=== PATIENT | female | born 1955 | race Caucasian/White ===

== ENCOUNTER 2019-07-18 12:14 | Outpatient (CLI) | payer BC ==
--- NOTE | 2019-07-18 14:25 | XRAY Report ---
Reason: BACK PAIN,LUMBAR THORACIC REGION,OSTEOPORTOSIS,SCO Procedure Date: 07/18/2019 Accession Number: [id number] / [id number] Procedure: XR - Lumbar Spine 2 View CPT Code: FULL RESULT: EXAM: LUMBOSACRAL SPINE RADIOGRAPHY EXAM DATE: 07/18/2019 01:01 PM. CLINICAL HISTORY: Back pain, lumbar thoracic region, osteoporosis, SCO. COMPARISONS: XR LUMBOSACRAL SPINE 4 VIEWS 07/28/2010 4:34 PM. TECHNIQUE: 2 views. FINDINGS: Alignment: There is 20 degrees of levoscoliosis at the apex at L2 with very slight rotatory component similar to comparison exam of 2009. No listhesis. Stable appearance of dual posterior fixation rods with a sublaminar hook at L1 of the left-sided giovanny and sublaminar hooks at T11 and T12 of the right-sided giovanny. Bones: There are 5 [id number] lumbar vertebrae. No acute fracture or bone lesion identified. Disks: Mild disk space narrowing at L5-S1 with vacuum disk phenomenon. Other disk levels are within expected limits. Facets: Stable facet arthrosis at L4-L5 and L5-S1. Sacroiliac Joints: Unremarkable. Soft Tissues: Normal. The visualized bowel gas pattern is normal. IMPRESSION: Stable exam findings with mild levoscoliosis and mild degenerative changes. No acute fracture appreciated. RADIA
== END 2019-07-18 12:15 | disposition home or self-care (01) ==
LOC: DI 12:14
PROVIDERS: ATTEND Nurse Practitioner
DX: M51.37 Other intervertebral disc degeneration, lumbosacral region (principal); M47.816 Spondylosis without myelopathy or radiculopathy, lumbar region; M47.817 Spondylosis without myelopathy or radiculopathy, lumbosacral region
CPT/HCPCS: 72100

== ENCOUNTER 2020-04-23 14:47 | Outpatient (CLI) | payer MEDICARE ==
--- NOTE | 2020-04-24 04:22 | XRAY Report ---
Reason: PAIN IN LT KNEE Procedure Date: 04/23/2020 Accession Number: [id number] / [id number] Procedure: XR - Knee 3 View LT CPT Code: Final Report FULL RESULT: EXAM: LEFT KNEE RADIOGRAPHY EXAM DATE: 04/23/2020 03:05 PM. CLINICAL HISTORY: Pain in left knee x 6 months, worse x 3 weeks. No trauma. COMPARISON: None. TECHNIQUE: 3 views. FINDINGS: Bones: Normal. No fractures or bone lesions. Minimal spurring at superior pole of patella. No significant degenerative changes. Joints: Possible small suprapatellar effusion. No subluxations. Soft Tissues: Normal. No soft tissue swelling. IMPRESSION: 1. No acute osseous abnormality. 2. No significant degenerative changes evident radiographically. 3. Possible suprapatellar joint effusion. RADIA
== END 2020-04-23 14:48 | disposition home or self-care (01) ==
LOC: DI 14:47
PROVIDERS: ATTEND Family Medicine
DX: M25.562 Pain in left knee (principal)

== ENCOUNTER 2020-05-18 16:35 | Outpatient (CLI) | payer MEDICARE ==
--- NOTE | 2020-05-18 17:37 | XRAY Report ---
PROCEDURE: TMJ's-Temporal Mandibular Jts INDICATIONS: TMJ TECHNIQUE: AP lateral and oblique views of the temporomandibular joints were obtained. COMPARISON: None. FINDINGS: No visualized fractures. No suspicious osseous lesions. The mandibular head is not well-characterized on all views secondary to overlapping osseous structures. No gross areas of necrosis or bony deformi ty are identified. No definitive displacement between open and closed mouth views although suboptimal ly evaluated. IMPRESSION: Suboptimal evaluation as above. No gross displacement or mandibular deformity. However, if clinical c oncern persists, MRI is recommended for further evaluation, as current exam is limited. Reviewed by: María Pastrana MD on 05/18/2020 5:35 PM PDT Approved by: María Pastrana MD on 05/18/2020 5:35 PM PDT Station ID: [id number]
== END 2020-05-18 16:36 | disposition home or self-care (01) ==
LOC: DI.S 16:35
PROVIDERS: ATTEND Nurse Practitioner Family
DX: M26.609 Unspecified temporomandibular joint disorder, unspecified side (principal)
CPT/HCPCS: 70330

== ENCOUNTER 2021-06-09 17:15 | Outpatient (CLI) | payer MEDICARE ==
[2021-06-09 17:30] LABS: BILIRUBIN,URINE NEGATIVE (NEGATIVE); GLUCOSE, URINE (UA) NEGATIVE (NEGATIVE); KETONES,URINE (UA) NEGATIVE (NEGATIVE); LEUKOCYTE ESTERASE, URINE NEGATIVE (NEGATIVE); NITRITE,URINE NEGATIVE (NEGATIVE); OCCULT BLOOD,URINE TRACE-INTA (NEGATIVE); PROTEIN,URINE NEGATIVE (NEGATIVE); UROBILINOGEN,URINE 0.2 (NORMAL) E.U./dL (NORMAL)
[2021-06-09 17:33] LABS: BACTERIA,URINE None Seen /HPF (None Seen); CLARITY,URINE CLEAR (CLEAR); RBC,URINE 0-5 /HPF (0-5); SQUAMOUS EPITHELIAL CELL,UR RARE Squamous (<= Few); WBC,URINE 0-3 /HPF (0-5)
== END 2021-06-09 17:16 | disposition home or self-care (01) ==
LOC: LAB 17:15
PROVIDERS: ATTEND Nurse Practitioner Family
DX: R30.9 Painful micturition, unspecified (principal)
CPT/HCPCS: 81001; 87086

== ENCOUNTER 2022-03-11 16:17 | Outpatient (CLI) | payer MEDICARE | END 2022-03-11 16:18 | disposition critical access hospital (66) | LOC: EMS 16:17 | DX: R07.89 Other chest pain (principal) | CPT/HCPCS: A0425; A0427 ==

== ENCOUNTER 2022-03-11 16:20 | Emergency (ER) | payer MEDICARE ==
[2022-03-11] MEDS ORDERED: LORazepam 2 MG/ML VIAL IVP STA (16:29)
--- NOTE | 2022-03-11 16:31 | ED Physician Documentation ---
PD HPI CHEST PAIN - Stated complaint Stated Complaint: CHEST PX/ANXIETY - History obtained from History obtained from: Patient, Friend, EMS - Additional information Additional information: 67-year-old woman who is medically healthy but has a history of bone and joint problems presents with very odd migrating chest and back pain starting after using THC vape pen which she is never done before. She is quite anxious and describing migratory pains in the upper abdomen, neck, chest, shoulders. She cannot describe it. She denies shortness of breath with it. She does feel mildly nauseous. No pedal edema or calf pain. No recent travel. Review of Systems Constitutional: reports: Chills. denies: Sweats Nose: denies: Rhinorrhea / runny nose Cardiac: reports: Chest pain / pressure. denies: Palpitations, Pedal edema, Calf pain Respiratory: denies: Dyspnea, Cough, Hemoptysis, Wheezing PD PAST MEDICAL HISTORY - Allergies Allergies/Adverse Reactions: Allergies Allergy/AdvReac Type Severity Reaction Status Date / Time losartan Allergy Nausea Verified 03/11/22 16:37 Sulfa (Sulfonamide Allergy Unknown Verified 03/11/22 16:37 Antibiotics) PD ED PE NORMAL - Vitals Vital signs reviewed: Yes - General General: Alert and oriented X 3, Other (She appears uncomfortable and is crying, keeping her eyes closed for the most part) - HEENT HEENT: PERRL, EOMI - Neck Neck: Supple, no meningeal sign, No bony TTP - Cardiac Cardiac: Other (Tachycardic but regular without murmur) - Respiratory Respiratory: No respiratory distress, Clear bilaterally - Abdomen Abdomen: Normal bowel sounds, Soft, Non tender - Back Back: No CVA TTP, No spinal TTP - Derm Derm: Normal color, Warm and dry - Extremities Extremities: No edema, No calf tenderness / cord - Neuro Neuro: Alert and oriented X 3, Normal speech - Psych Psych: Other (Anxious and agitated) Results - Vitals Vitals: Vital Signs - 24 hr 03/11/22 03/11/22 03/11/22 16:28 16:45 17:15 Temperature 36.4 C L 36.6 C Heart Rate 112 H 92 97 Respiratory 19 19 22 Rate Blood Pressure 157/119 H 172/96 H 151/83 H O2 Saturation 99 100 96 03/11/22 17:30 Temperature 36.6 C Heart Rate 95 Respiratory 16 Rate Blood Pressure 129/78 O2 Saturation 98 Oxygen O2 Source Room air - EKG (time done) 1632 Rate: Rate (enter#) (103) Rhythm: Sinus tachycardia (w pvcs), LAE Intervals: Prolonged UT QRS: LVH Ischemia: Q waves (III/F). No: ST elevation c/w ischemia, ST depression 1735 Rate: Rate (enter#) (95) Rhythm: NSR [place]: Normal Intervals: Normal UT QRS: LVH Ischemia: Q waves (inferior) Computer interpretation: Agree with computer - Labs Labs: Laboratory Tests 03/11/22 03/11/22 03/11/22 16:37 16:37 16:37 WBC 6.6 RBC 4.68 Hgb 15.0 Hct 45.3 MCV 96.8 MCH 32.1 H MCHC 33.1 RDW 12.6 Plt Count 203 MPV 8.7 Neut # (Auto) 3.6 Lymph # (Auto) 2.1 [place] # (Auto) 0.4 Eos # (Auto) 0.4 Baso # (Auto) 0.1 Absolute Nucleated RBC 0.00 Nucleated RBC % 0.0 Sodium 138 Potassium 3.4 L Chloride 102 Carbon Dioxide 25 Anion Gap 11.0 BUN 19 Creatinine 0.7 Estimated GFR (MDRD) 83 L Glucose 129 H Calcium 9.9 Total Bilirubin 0.5 AST 16 ALT 10 Alkaline Phosphatase 54 Troponin I High Sens 3.3 Total Protein 7.3 Albumin 4.3 Globulin 3.0 Albumin/Globulin Ratio 1.4 PD MEDICAL DECISION MAKING - ED course ED course: 67-year-old woman presents with very odd chest pain and she is agitated after using some THC. After 1 mg of Ativan she is feeling much better and the agitation has resolved. Initially I was considering aortic pathology such as a dissection, but since it was so easy to control her symptoms and they abated this makes the THC much more likely to be causative. We did discuss the incidental findings on her EKG and the necessary follow-up for that. Departure - Departure Disposition: 01 Home, Self Care Clinical Impression: Atypical chest pain Condition: Good Record reviewed to determine appropriate education?: Yes Instructions: ED Chest Pain NonCardiac Comments: On your EKG there was a suggestion of potentially an enlarged heart and may be a prior heart attack. Nothing looking acute though. EKG is not the best modality to work this up and you should talk with your doctor, Sunday or Sunday about scheduling an echocardiogram. Return for new or worsening symptoms.
[2022-03-11] MEDS ORDERED: IOVERSOL 320 100 ML VIAL IVP ONE (16:43)
[2022-03-11 16:47] LABS: BASOPHILS # (AUTO) 0.1 10^3/uL (0.0-0.1); BASOPHILS % (AUTO) 0.8 %; EOSINOPHILS # (AUTO) 0.4 10^3/uL (0.0-0.7); EOSINOPHILS % (AUTO) 6.7 %; HCT - HEMATOCRIT 45.3 % (37.0-47.0); LYMPHOCYTES # (AUTO) 2.1 10^3/uL (1.5-3.5); LYMPHOCYTES % (AUTO) 32.2 %; MEAN CORPUSCULAR HEMOGLOBIN 32.1 pg (27.0-31.0); MEAN CORPUSCULAR HGB CONC 33.1 g/dL (32.0-36.0); MEAN CORPUSCULAR VOLUME 96.8 fL (81.0-99.0); MEAN PLATELET VOLUME 8.7 fL (7.9-10.8); MONOCYTES # (AUTO) 0.4 10^3/uL (0.0-1.0); MONOCYTES % (AUTO) 5.5 %; NEUTROPHILS # (AUTO) 3.6 10^3/uL (1.5-6.6); NEUTROPHILS % (AUTO) 54.5 %; PLT - PLATELET COUNT 203 10^3/uL (130-450); RED BLOOD COUNT 4.68 10^6/uL (4.20-5.40); RED CELL DISTRIBUTION WIDTH 12.6 % (12.0-15.0); WHITE BLOOD COUNT 6.6 x10^3/uL (4.8-10.8)
[2022-03-11 17:06] LABS: ALBUMIN 4.3 g/dL (3.2-5.5); ALBUMIN/GLOBULIN RATIO 1.4 (1.0-2.2); BILIRUBIN,TOTAL 0.5 mg/dL (0.2-1.0); CALCIUM 9.9 mg/dL (8.5-10.3); CREATININE 0.7 mg/dL (0.4-1.0); POTASSIUM 3.4 mmol/L (3.5-5.0); TOTAL PROTEIN 7.3 g/dL (6.7-8.2)
[2022-03-11 17:32] VITALS: BP 129/78
== END 2022-03-11 17:57 | disposition home or self-care (01) ==
LOC: EDUNIT# → ED 16:20
DX: R07.89 Other chest pain (principal)
CPT/HCPCS: 36415; 80053; 84484; 85025; 93005; 96374; 99282; 99284; J2060

== ENCOUNTER 2022-03-21 08:00 | Outpatient (CLI) | payer MEDICARE ==
--- NOTE | 2022-03-21 11:35 | XRAY Report ---
PROCEDURE: Toe(s) RT INDICATIONS: PAIN IN RIGHT TOES TECHNIQUE: 3 views of the right toe(s) acquired. COMPARISON: None FINDINGS: Bones: No fractures or dislocations. No suspicious bony lesions. Moderate first metatarsal phalang eal joint space narrowing with marginal osteophyte present. Soft tissues: No suspicious soft tissue densities. IMPRESSION: First MTP osteoarthritis. No fracture. Reviewed by: Orlando Franks MD on 03/21/2022 10:33 AM JEFF Approved by: Orlando Franks MD on 03/21/2022 10:33 AM AKTARUN Station ID: [id number]
== END 2022-03-21 23:59 | disposition home or self-care (01) ==
LOC: DI.S 08:00
PROVIDERS: ATTEND Physician Assistant Medical
DX: M19.071 Primary osteoarthritis, right ankle and foot (principal)

== ENCOUNTER 2022-04-30 15:11 | Outpatient (CLI) | payer MEDICARE | END 2022-04-30 15:12 | disposition home or self-care (01) | LOC: LAB 15:11 | PROVIDERS: ATTEND Internal Medicine | DX: R39.9 Unspecified symptoms and signs involving the genitourinary system (principal) | CPT/HCPCS: 87086; 87181 ==

== ENCOUNTER 2023-06-25 11:24 | Outpatient (CLI) | payer MEDICARE | END 2023-06-25 11:25 | disposition home or self-care (01) | LOC: LAB 11:24 | PROVIDERS: ATTEND Registered Nurse | DX: R30.0 Dysuria (principal) | CPT/HCPCS: 87086 ==

== ENCOUNTER 2023-07-05 08:34 | Outpatient (CLI) | payer MEDICARE ==
[2023-07-05 08:49] LABS: BASOPHILS # (AUTO) 0.1 10^3/uL (0.0-0.1); EOSINOPHILS # (AUTO) 0.4 10^3/uL (0.0-0.7); EOSINOPHILS % (AUTO) 7.6 %; HCT - HEMATOCRIT 45.8 % (37.0-47.0); HGB - HEMOGLOBIN 14.8 g/dL (12.0-16.0); LYMPHOCYTES # (AUTO) 1.5 10^3/uL (1.5-3.5); LYMPHOCYTES % (AUTO) 31.8 %; MEAN CORPUSCULAR HGB CONC 32.3 g/dL (32.0-36.0); MEAN CORPUSCULAR VOLUME 98.9 fL (81.0-99.0); MEAN PLATELET VOLUME 8.3 fL (7.9-10.8); MONOCYTES # (AUTO) 0.4 10^3/uL (0.0-1.0); MONOCYTES % (AUTO) 7.4 %; NEUTROPHILS # (AUTO) 2.5 10^3/uL (1.5-6.6); PLT - PLATELET COUNT 204 10^3/uL (130-450); RED BLOOD COUNT 4.63 10^6/uL (4.20-5.40); RED CELL DISTRIBUTION WIDTH 12.5 % (12.0-15.0); WHITE BLOOD COUNT 4.9 x10^3/uL (4.8-10.8)
[2023-07-05 09:01] LABS: ALBUMIN 4.3 g/dL (3.2-5.5); ALBUMIN/GLOBULIN RATIO 1.7 (1.0-2.2); ALKALINE PHOSPHATASE 51 IU/L (42-121); ALT ALANINE AMINOTRANSFERASE 16 IU/L (10-60); AST ASPARTATE AMINOTRANSFERASE 18 IU/L (10-42); BILIRUBIN,TOTAL 0.5 mg/dL (0.2-1.0); BUN - BLOOD UREA NITROGEN 14 mg/dL (6-20); CALCIUM 9.8 mg/dL (8.5-10.3); CARBON DIOXIDE - CO2 32 mmol/L (21-32); CHLORIDE 105 mmol/L (101-111); CHOL/HDL RATIO 3.6 (<4.4); CHOLESTEROL 262 mg/dL; CREATININE 0.6 mg/dL (0.6-1.3); CRP HIGH SENSITIVITY 1.71 mg/L; GFR - MDRD 99 (>89); GLUCOSE 97 mg/dL (74-104); HDL CHOLESTEROL 72 mg/dL; LDL CHOLESTEROL,CALCULATED 175 mg/dL; LDL/HDL RATIO 2.4 (<4.4); POTASSIUM 4.2 mmol/L (3.5-4.5); SODIUM 141 mmol/L (135-145); TOTAL PROTEIN 6.8 g/dL (6.4-8.9); TRIGLYCERIDES 77 mg/dL (48-352); VLDL CHOLESTEROL 15 mg/dL
== END 2023-07-05 08:35 | disposition home or self-care (01) ==
LOC: LAB 08:34
PROVIDERS: ATTEND Emergency Medicine
DX: R00.2 Palpitations (principal); H53.452 Other localized visual field defect, left eye; Z79.899 Other long term (current) drug therapy; Z13.220 Encounter for screening for lipoid disorders; M81.0 Age-related osteoporosis without current pathological fracture; Z13.29 Encounter for screening for other suspected endocrine disorder
CPT/HCPCS: 36415; 80053; 80061; 83721; 83735; 83970; 84443; 85025; 86141

== ENCOUNTER 2023-08-31 15:44 | Outpatient (CLI) | payer MEDICARE ==
--- NOTE | 2023-08-31 18:19 | Ultrasound Report ---
PROCEDURE: Carotid Doppler Complete INDICATIONS: VISION LOSS, MIGRAINE KANG TECHNIQUE: Duplex carotid ultrasound was obtained and circulation sales representative images were recorded with veloc ity measurements. Any estimate of stenosis was obtained with reference to standards endorsed by the [employer] COMPARISON: None. FINDINGS: Right side: Brachial blood pressure: 120/77 mm Hg. Common carotid artery peak systolic velocity: 66 cm/sec. Internal carotid artery peak systolic velocity: 82 cm/sec. Internal carotid artery end diastolic velocity: 34 cm/sec. External carotid artery peak systolic velocity: 69 cm/sec. ICA/CCA peak systolic ratio: 1.2 . Elena scale imaging description: Mild extrahepatic plaque Percent internal carotid artery stenosis: Less than 50. Vertebral artery: Flow direction is antegrade. Left side: Brachial blood pressure: 123/68 mm Hg. Common carotid artery peak systolic velocity: 76 cm/sec. Internal carotid artery peak systolic velocity: 69 cm/sec. Internal carotid artery end diastolic velocity: 26 cm/sec. External carotid artery peak systolic velocity: 92 cm/sec. ICA/CCA peak systolic ratio: 0.9 . Elena scale imaging description: Mild left sclerotic plaque Percent internal carotid artery stenosis: Less than 50. Vertebral artery: Flow direction is antegrade. IMPRESSION: 1. Mild atherosclerotic plaque in both proximal internal carotid arteries without hemodynamically sig nificant stenosis. Reviewed by: Orlando Franks MD on 08/31/2023 5:18 PM JEFF Approved by: Orlando Franks MD on 08/31/2023 5:18 PM JEFF Station ID: [id number]
== END 2023-08-31 15:45 | disposition home or self-care (01) ==
LOC: DI 15:44
PROVIDERS: ATTEND Registered Nurse
DX: G43.909 Migraine, unspecified, not intractable, without status migrainosus (principal); H53.139 Sudden visual loss, unspecified eye; I65.23 Occlusion and stenosis of bilateral carotid arteries
CPT/HCPCS: 93880

== ENCOUNTER 2023-10-22 08:55 | Outpatient (CLI) | payer MEDICARE ==
--- NOTE | 2023-10-23 22:00 | SLEEP CARE CONSULTATION ---
Information from patient questionnaire entered by Jad Campbell. I have reviewed and concur with the information entered by Jad Campbell. This document represents the service I personally performed and the decisions made by me, Luis Fernando James MD, [facility]. History of Present Illness Service Date and Time: 10/22/2023 0855 Reason for Visit: New patient Chief Complaint: reports: Insomnia, Unrefreshed sleep, Fatigue, Frequent awakenings at night, Other (WAKING EVERY EVENING HEART POUNDING) Date of Onset: 6YRS Usual bedtime: 10-11PM Time it takes to fall asleep: AT LEAST 1 HR Snores at night: No Observed to quit breathing while asleep: No Sleeps alone due to snoring: No Number of times waking at night: 2-3 Reasons for waking at night: reports: Bathroom, Other (UNKNOWN) Toss, Turn, or Twitch while sleeping: No Usually gets out of bed at: 7-730AM Feels refreshed in the morning: No Sleepy or fatigued during the day: Yes Ever fallen asleep while driving: No Takes day naps: No Prior sleep studies: Yes Additional HPI information: I have the pleasure of seeing Ms. Garg today regarding the possibility of her having obstructive sleep apnea. As you know, she is a 68-year-old lady who has complained of insomnia for the past 6 years. It started when her partner . She says that since then, she is afraid to go to sleep because she would wake up with palpitations. Ten years ago, she had a sleep study at [facility]. She was told that she had mild obstructive sleep apnea-hypopnea and was prescribed a CPAP. She could not tolerate it. That does not occur if there is somebody else sleeping in her house. The patient tells me that she normally goes to bed around 10 - 11 pm, and it takes her approximately 60+ minutes to fall asleep. She has not been told that she snores loudly or irregularly at night. She has never been observed to stop breathing in her sleep. She now sleeps alone. She can recall waking up on average 2 - 3 times during the night. Most of the time she wakes up because of having to use the bathroom. She has awakened occasionally because of her own snoring, choking, and having to gasp for air. There is a lot of tossing and turning in her sleep. No somniloquy (sleep talking) or somnambulism (sleep walking). Generally, she can recall having dreams. In the morning she usually gets up out of the bed around 7 7:30 a.m. not feeling refreshed nor rested. She occasionally has a morning headache. During the day she complains of feeling sleepy and fatigued. Her score on [place] Sleepiness Scale is 3 out of 24. She never has fallen asleep while driving nor has had any accident due to sleepiness. She usually does not take naps during the day. Upon falling asleep during the day she admits to denies having vivid dreams. She has never had sleep paralysis, experienced cataplexy or symptoms of restless leg syndrome. She reports having impaired concentration during the day. - Parasomnia Symptoms Ever been unable to move upon waking from sleep: No Walks in sleep: No Ever acted out dreams in sleep: No Ever felt weak in the knees when startled or emotional: No Bothered by creepy, crawly, restless sensations in legs: No Problems with memory or concentration: Yes Subjective Initial [place] Sleepiness Scale score: 3 (10/22/23) Past Medical History Past Medical History: reports: Hypertension, Arthritis, Anxiety, Depression Social History The patient's occupation is a RE. Patient is Single and lives in . Have you smoked in the past 12 months: No Alcohol use: Yes Alcohol amount and frequency: 1 DRINK ONCE AWEEK Caffeine use: Yes Caffeine amount and frequency: 1 DRINK IN THE AM Family History Family history of sleep disordered breathing: No Allergies and Home Medications Known drug allergies: Yes Drug allergies reviewed: Yes Home medication list reviewed: Yes Allergy and home medication list: Allergies losartan Allergy (Verified 10/17/23 10:14) Nausea Sulfa (Sulfonamide Antibiotics) Allergy (Verified 10/17/23 10:14) Unknown Review of Systems Cardiovascular: reports: high blood pressure, palpitations Respiratory: denies: shortness of breath, wheeze, sputum production, chronic cough, other Gastrointestinal: denies: heartburn, difficulty swallowing, nausea, vomitting, diarrhea, abdominal pain, other Urinary: reports: other (BLADDER AIN) Neurological: reports: headaches, head trauma Psychiatric: denies: Attention Deficit Hyperactivity, anxiety, depression, mood disorder, claustrophobia, other Ear/Nose/Throat: denies: nasal congestion, sinus problems, nose bleeds, dry mouth/throat, hoarseness, injury to nose, tonsillectomy, wisdom teeth removed, other Musculoskeletal: denies: joint pain, neck pain, back pain, joint swelling, muscle pain or cramping, mobility problems, other Immunologic: denies: sneezing, rash, itching, allergies to food or environment, other Physical Exam Vital signs obtained and entered by: JAD Ferro MA Blood Pressure: 114/66 (LEFT ARM) Cuff size: regular Heart Rate: 68 O2 Saturation: 97 Height: 5 ft 4.75 in Weight: 139 lb 9.6 oz Body Mass Index: 23.3 BMI Classification: Normal Neck circumference: 13.5 Mood/affect: Normal HEENT: No craniofacial malformation Nostrils: patent to airflow Turbinates: normal Septum: midline Mouth and throat: narrow oropharynx Soft palate: long Hard palate: normal Uvula: normal Uvula visualization: 50% Mallampati Class II Tongue: normal in size Tonsils: small Chin and jaw: normal size and position Neck: normal w/o lymphadenopathy or thyromegaly Heart: regular rate and rhythm Lungs: clear bilaterally Extremities: no edema or clubbing Neurologic: intact Impression and Plan IMPRESSION: 1. Obstructive Sleep Apnea-Hypopnea Syndrome, as previously diagnosed. She does not appear to be symptomatic at this point. She does not even snore. Therefore, another in-laboratory polysomnography will be performed to see if she still has the sleep-related breathing disorder. 2. Insomnia, most likely due to underlying anxiety / depression that stem from her partner passing 6 years ago. She also spends excessive time in bed at night. Because she gets out of bed at 7:30 am, I advised her to not go to bed until midnight. Plan: 1. Schedule polysomnography and return in 1 to 2 weeks after the study to discuss result and initiate therapy. 2. Maintain a regular wake up time and spend no more than 7.5 hours in bed at night. Avoid naps. 3. Consider further evaluation and treatment of anxiety / depression. Follow up with Sleep Care in: 1-2 months Visit Type: In Office Time Spent with Patient (minutes): 15 Provider Statement: I spent 100% of the Face to Face Visit with the patient with greater than 50% spent counseling the patient and coordination of care.
[2023-10-23 22:05] VITALS: BP 114/66; O2SAT 97
== END 2023-10-22 08:56 | disposition home or self-care (01) ==
LOC: SC 08:55
PROVIDERS: ATTEND Internal Medicine Pulmonary Disease
DX: G47.33 Obstructive sleep apnea (adult) (pediatric) (principal); G47.00 Insomnia, unspecified
CPT/HCPCS: 99202; G0463; 99212

== ENCOUNTER 2024-03-04 14:45 | Outpatient (CLI) | payer MEDICARE ==
--- NOTE | 2024-03-04 15:53 | XRAY Report ---
PROCEDURE: Ankle 3 View BILAT INDICATIONS: BILAT ANKLE PAIN TECHNIQUE: 4 views of the bilateral ankles were acquired. COMPARISON: None. FINDINGS: Bones: No fractures or dislocations. Ankle mortise is normally aligned. No suspicious bony lesions . Soft tissues: No tibiotalar joint effusion. Achilles tendon appears normal. IMPRESSION: No acute bony abnormality. If pain persists with conservative management, consider repeat x-ray in 10 -14 days or cross-sectional imaging. Reviewed by: Selvin Flores MD on 03/04/2024 3:52 PM PDT Approved by: Selvin Flores MD on 03/04/2024 3:52 PM PDT Station ID: [id number]
== END 2024-03-04 23:59 | disposition home or self-care (01) ==
LOC: DI.WOS 14:45
PROVIDERS: ATTEND Orthopaedic Surgery
DX: M25.571 Pain in right ankle and joints of right foot (principal); M25.572 Pain in left ankle and joints of left foot